=== PATIENT | male | born 1975 | race Caucasian/White ===

== ENCOUNTER 2017-10-31 10:02 | Emergency (ER) | payer MEDICAID ==
[~2017-10-31] VITALS: Wt 68.3 kg
[2017-10-31] MEDS ORDERED: ONDANSETRON (ODT) 4 MG TAB ODT STA (11:10)
[2017-10-31] MEDS ORDERED: HYDROCODONE/APAP (5/325) TAB PO ONE (11:30)
--- NOTE | 2017-10-31 12:08 | RADRPT ---
PROCEDURE: XR Finger. CLINICAL INDICATION: Right third digit pain. Trauma. TECHNIQUE: Three views of the right third finger are available for review. COMPARISON: None available FINDINGS: The osseous structures demonstrate normal alignment and mineralization. No acute fracture or disloc ation is seen. No radiopaque foreign body is identified. The soft tissues are unremarkable. IMPRESSION: Unremarkable right third digit x-ray series. RPTAT: HH .Sadaf Carrington MD, MD Date Time Electronically viewed and signed by .Sadaf Carrington MD, on 10/31/2017 12:07 .Nancy/
[2017-10-31] MEDS ORDERED: NAPR-260 PO (12:26)
--- NOTE | 2017-10-31 13:53 | ERD ---
ER Documentation Chief Complaint Chief Complaint RIGHT MIDDLE FINGER INJURY AFTER CAR DOOR SLAMMED ON FINGER HPI 42-year-old male complaining of pain to right middle finger. Patient had a car door slam on his finger earlier today. Patient is right-hand dominant. Denies any numbness or tingling to her hands. Not taken any medications for pain. ROS All systems reviewed and are negative except as per history of present illness. Medications Home Meds Active Scripts Naproxen* (Naprosyn*) 500 Mg Tablet, 500 MG PO BID Y for PAIN AND/OR INFLAMMATION, #30 TAB Prov:DARIAN SALCEDO PA-C 10/31/17 Allergies Allergies: Coded Allergies: No Known Allergy (Unverified , 10/31/17) PMhx/Soc Medical and Surgical Hx: pt denies Medical Hx, pt denies Surgical Hx Hx Alcohol Use: Yes (SOCIAL) Hx Substance Use: No Hx Tobacco Use: No Smoking Status: Never smoker Physical Exam Vitals Vital Signs Date Time Temp Pulse Resp B/P Pulse Ox O2 Delivery O2 Flow Rate FiO2 10/31/17 10:17 97.8 59 18 122/76 98 Physical Exam GENERAL: The patient is well-appearing, well-nourished, in no acute distress CHEST: Clear to auscultation bilaterally. There are no rales, wheezes or rhonchi. HEART: Regular rate and rhythm. No murmurs, clicks, rubs or gallops. No S3 or S4. EXTREMITIES: TTP to DIP and PIP joint of 3rd right finger. No obvious deformity. Swelling noted to right middle finger. NEUROLOGIC: Alert and oriented. Cranial nerves II through XII intact. Motor strength in all 4 extremities with 5 out of 5 strength. Sensation grossly intact. Normal speech and gait. Babinski negative. DTR 2+ throughout. SKIN: superficial laceration to dorsal right middle finger at DIP joint. Results 24 hrs Current Medications Medications (Trade) Dose Ordered Sig/Heena Route PRN Reason Start Time Stop Time Status Last Admin Dose Admin Acetaminophen/ Hydrocodone Bitart ([place] (5/325)) 1 tab ONCE ONCE PO 10/31/17 11:30 10/31/17 11:31 DC 10/31/17 11:14 Ondansetron HCl (Zofran Odt) 4 mg ONCE STAT ODT 10/31/17 11:10 10/31/17 11:12 DC 12/4/17 11:14 Procedures/MDM DIAGNOSTIC IMAGING REPORT Patient: JERONIMO MOSHER : 1975 Age: 42 Sex: M MR #: [id number] DOS: 10/31/17 1110 Ordering MD: JAIR SALCEDO PA-C Location: [facility] Room/Bed: PROCEDURE: XR Finger. CLINICAL INDICATION: Right third digit pain. Trauma. TECHNIQUE: Three views of the right third finger are available for review. COMPARISON: None available FINDINGS: The osseous structures demonstrate normal alignment and mineralization. No acute fracture or dislocation is seen. No radiopaque foreign body is identified. The soft tissues are unremarkable. IMPRESSION: Unremarkable right third digit x-ray series. ER Course: Digit cleaned with normal saline. Dermbond applied. Finger splint applied in position of function. Patient neuro intact pre and post splint application MDM: 42 yr old male complaining of right finger pain. I have low suspicion for acute fracture or dislocation. I have low suspicion for tendon or ligament injury. I have low suspicion for neuro deficit. Patient is placed in finger splint but told to start moving digit in the next few days. Patient is discharged with recommendation to see PMD in 1-2 days. All questions answered at discharge. Departure Diagnosis: Primary Impression: Laceration Condition: Stable Patient Instructions: Finger Contusion, Laceration, All Referrals: [facility] YOU HAVE RECEIVED A MEDICAL SCREENING EXAM AND THE RESULTS INDICATE THAT YOU DO NOT HAVE A CONDITION THAT REQUIRES URGENT TREATMENT IN THE EMERGENCY DEPARTMENT. FURTHER EVALUATION AND TREATMENT OF YOUR CONDITION CAN WAIT UNTIL YOU ARE SEEN IN YOUR DOCTORS OFFICE WITHIN THE NEXT 1-2 DAYS. IT IS YOUR RESPONSIBILITY TO MAKE AN APPOINTMENT FOR FOL-UP CARE. IF YOU HAVE A PRIMARY DOCTOR --you should call your primary doctor and schedule an appointment IF YOU DO NOT HAVE A PRIMARY DOCTOR YOU CAN CALL OUR PHYSICIAN REFERRAL HOTLINE AT IF YOU CAN NOT AFFORD TO SEE A PHYSICIAN YOU CAN CHOSE FROM THE FOLLOWING [facility] [id number] [facility] [address] [facility] [facility] [address] [facility] [address] [facility] [address] [facility]. [facility] [address] Additional Instructions: FOLLOW UP WITH YOUR PRIMARY CARE PHYSICIAN TOMORROW.Return to this facility if you are not improving as expected. DARIAN SALCEDO PA-C Oct 31, 2017 13:53
== END 2017-10-31 12:36 | disposition home or self-care (01) ==
LOC: FTE 10:02
DX: S61.212A Laceration without foreign body of right middle finger without damage to nail, initial encounter (principal); W23.0XXA Caught, crushed, jammed, or pinched between moving objects, initial encounter; Y92.9 Unspecified place or not applicable
CPT/HCPCS: 73140; Z7502; Z7610

== ENCOUNTER 2018-06-13 19:09 | Emergency (ER) | END 2018-06-14 00:07 | disposition home or self-care (01) ==